=== PATIENT | female | born 1990 | race Caucasian/White ===

== ENCOUNTER 2023-04-07 04:57 | Emergency (ER) | payer OTHER ==
[~2023-04-07] VITALS: Ht 170.1 cm; Wt 63.5 kg
[~2023-04-07 04:57] MED LIST: ZOFRAN ODT4 MG SL
== END 2023-04-07 05:39 | disposition home or self-care (01) ==
LOC: ED 04:57
DX: S01.81XA Laceration without foreign body of other part of head, initial encounter (principal); W20.8XXA Other cause of strike by thrown, projected or falling object, initial encounter; Y93.89 Activity, other specified; Y92.89 Other specified places as the place of occurrence of the external cause; Y99.8 Other external cause status